=== PATIENT | male | born 1960 | race Caucasian/White ===

== ENCOUNTER 2019-03-06 12:05 | Outpatient (CLI) | payer OTHER | END 2019-03-09 12:06 | disposition short-term general hospital (02) | LOC: EMS 12:05 | PROVIDERS: ATTEND Surgery | DX: S09.90XA Unspecified injury of head, initial encounter (principal); S99.912A Unspecified injury of left ankle, initial encounter; M54.5 Low back pain; W11.XXXA Fall on and from ladder, initial encounter; Y92.008 Other place in unspecified non-institutional (private) residence as the place of occurrence of the external cause | CPT/HCPCS: A0425; A0427 ==

== ENCOUNTER 2019-04-04 21:41 | Emergency (ER) | payer OTHER, MEDICAID ==
--- NOTE | 2019-04-04 21:58 | ED Physician Documentation ---
History of Present Illness - Stated complaint Stated Complaint: ANKLE PX POST OP - Chief complaint Chief Complaint: Ext Problem - History obtained from History obtained from: Patient - History of Present Illness Timing: How many days ago (4 days) Pain level max: 10 Pain level now: 10 Improved by: rest Worsened by: no exacerbating factors Associated symptoms: pain, chills, dyspnea - Additonal information Additional information: patient fell off ladder 03/05/19, was taken from scene directly to [place] where he stayed for 2-3 days. He was diagnosed with fractures of T12 and S3, as well as left calcaneus. He was discharged home, and then had surgery at [facility] 03/25 to repair the calcaneal fracture. He has been having steady pain in the left foot since the surgery, which has been worsening past few days and, since Sunday (4 days ago), associated with left posterior calf pain/cramping. He contacted [facility] and was told to take PO magnesium and also had rx sent to his pharmacy for flexeril; neither of these measures has improved the discomfort. Today he has been having chills, has not taken his temperature at home. Review of Systems Constitutional: reports: Chills Eyes: reports: Reviewed and negative Ears: reports: Reviewed and negative Nose: reports: Reviewed and negative Cardiac: reports: Pedal edema. denies: Chest pain / pressure, Palpitations Respiratory: reports: Dyspnea (this evening). denies: Cough, Hemoptysis, Wheezing GI: reports: Reviewed and negative : denies: Dysuria, Frequency Musculoskeletal: reports: Extremity pain, Extremity swelling Neurologic: denies: Generalized weakness, Focal weakness, Numbness, Headache PD PAST MEDICAL HISTORY - Past Medical History Past Medical History: Yes Cardiovascular: Hypertension - Past Surgical History Past Surgical History: Yes Ortho: Other (repair of left calcaneus fracture) - Present Medications Home Medications: Ambulatory Orders Medication Instructions Recorded Confirmed Acetaminophen [Tylenol Extra 1,000 mg PO TID 04/05/19 04/05/19 Strength] Amlodipine Besylate 10 mg PO DAILY 04/05/19 04/05/19 Gabapentin 300 mg PO TID 04/05/19 04/05/19 hydrOXYzine HCl [Hydroxyzine HCl] 50 mg PO TID 04/05/19 04/05/19 oxyCODONE [Roxicodone] 5 mg PO Q6HR PRN 04/05/19 04/05/19 - Allergies Allergies/Adverse Reactions: Allergies Allergy/AdvReac Type Severity Reaction Status Date / Time No Known Drug Allergies Allergy Verified 04/04/19 21:51 - Living Situation Living Situation: reports: With spouse/s.o. Living Arrangement: reports: At home - Social History Does the pt smoke?: No PD ED PE NORMAL - Vitals Vital signs reviewed: Yes - General General: Alert and oriented X 3, Well developed/nourished, Other (appears to be in pain at times during H+P) - HEENT HEENT: Moist mucous membranes - Neck Neck: Supple, no meningeal sign - Cardiac Cardiac: RRR, No murmur - Respiratory Respiratory: No respiratory distress, Clear bilaterally - Abdomen Abdomen: Soft, Non tender - Neuro Neuro: No motor deficit, No sensory deficit PD ED PE EXPANDED - Extremities Extremities: Other (left foot is swollen, tender, hot to touch, erythematous. the medial malleolus has fluctuance and purulent drainage. incision site is C/D/I with sutures in place. brisk capillary refill in toes with LTS intact) Results - Vitals Vitals: Vital Signs - 24 hr 04/04/19 04/04/19 04/05/19 21:45 22:15 00:06 Temperature 35.6 C L 36.5 C 37.2 C Heart Rate 115 H 88 Respiratory 18 14 Rate Blood Pressure 123/81 H 130/73 O2 Saturation 97 98 04/05/19 04/05/19 04/05/19 00:14 01:08 02:17 Temperature 37.4 C Heart Rate 94 86 83 Respiratory 18 17 18 Rate Blood Pressure 132/77 H 137/81 H 123/78 O2 Saturation 99 98 99 04/05/19 04/05/19 02:38 03:53 Temperature 36.8 C 36.7 C Heart Rate 85 91 Respiratory 18 15 Rate Blood Pressure 138/79 H 132/85 H O2 Saturation 98 97 Oxygen O2 Source Room air - EKG (time done) No standard instances Rate: Rate (enter#) (95) Rhythm: NSR [place]: Normal Intervals: Normal ND QRS: Normal Ischemia: Normal ST segments - Labs Labs: Laboratory Tests 04/04/19 04/04/19 04/04/19 22:26 22:26 22:26 WBC 9.5 RBC 3.65 L Hgb 11.4 L Hct 33.7 L MCV 92.3 MCH 31.2 H MCHC 33.8 RDW 11.9 L Plt Count 414 MPV 8.6 Neut # (Auto) 6.7 H Lymph # (Auto) 1.2 L [place] # (Auto) 1.3 H Eos # (Auto) 0.1 Baso # (Auto) 0.1 Absolute Nucleated RBC 0.00 Nucleated RBC % 0.0 ESR Sodium 137 Potassium 3.6 Chloride 101 Carbon Dioxide 25 Anion Gap 11.0 BUN 7 Creatinine 0.9 Estimated GFR (MDRD) 87 L Glucose 118 H Lactic Acid 1.3 Calcium 9.6 C-Reactive Protein 7.4 H 04/04/19 22:26 WBC RBC Hgb Hct MCV MCH MCHC RDW Plt Count MPV Neut # (Auto) Lymph # (Auto) [place] # (Auto) Eos # (Auto) Baso # (Auto) Absolute Nucleated RBC Nucleated RBC % ESR 44 H Sodium Potassium Chloride Carbon Dioxide Anion Gap BUN Creatinine Estimated GFR (MDRD) Glucose Lactic Acid Calcium C-Reactive Protein - Rads (name of study) LLE US Radiology: Prelim report reviewed, See rad report left foot xrays Radiology: Prelim report reviewed, See rad report PD MEDICAL DECISION MAKING - ED course Complexity details: reviewed results, re-evaluated patient, considered differential, d/w patient ED course: D/W Dr. Sarath Fiore (orthopedics at [facility]), accepts patient for transfer. We discussed antibiotics and he says antibiotics do not need to be started in [facility] at this time Departure - Departure Disposition: 02 Transfer Acute Care Hosp Clinical Impression: Post-operative infection Condition: Stable Discharge Date/Time: 04/05/19 03:55
[2019-04-04 22:38] LABS: BASOPHILS # (AUTO) 0.1 10^3/uL (0.0-0.1); EOSINOPHILS # (AUTO) 0.1 10^3/uL (0.0-0.7); EOSINOPHILS % (AUTO) 1.1 %; HGB - HEMOGLOBIN 11.4 g/dL (14.0-18.0); LYMPHOCYTES # (AUTO) 1.2 10^3/uL (1.5-3.5); MEAN CORPUSCULAR HEMOGLOBIN 31.2 pg (27.0-31.0); MEAN CORPUSCULAR HGB CONC 33.8 g/dL (32.0-36.0); MEAN CORPUSCULAR VOLUME 92.3 fL (80.0-94.0); MEAN PLATELET VOLUME 8.6 fL (7.4-11.4); MONOCYTES # (AUTO) 1.3 10^3/uL (0.0-1.0); MONOCYTES % (AUTO) 13.4 %; NEUTROPHILS # (AUTO) 6.7 10^3/uL (1.5-6.6); NEUTROPHILS % (AUTO) 71.1 %; PLT - PLATELET COUNT 414 10^3/uL (130-450); RED BLOOD COUNT 3.65 10^6/uL (4.70-6.10); RED CELL DISTRIBUTION WIDTH 11.9 % (12.0-15.0); WHITE BLOOD COUNT 9.5 x10^3/uL (4.8-10.8)
[2019-04-04 22:55] LABS: CALCIUM 9.6 mg/dL (8.5-10.3); CREATININE 0.9 mg/dL (0.6-1.2); CRP - C-REACTIVE PROTEIN 7.4 mg/dL (0-1.0)
--- NOTE | 2019-04-04 23:03 | XRAY Report ---
Reason: recent surgery, now appears infected Procedure Date: 04/04/2019 Accession Number: [id number] / [id number] Procedure: XR - Foot 3 View LT CPT Code: Final Report FULL RESULT: EXAM: LEFT FOOT RADIOGRAPHY EXAM DATE: 04/04/2019 10:42 PM. CLINICAL HISTORY: Recent surgery, now appears infected. COMPARISON: None. TECHNIQUE: 3 views. FINDINGS: Bones: Side plate and screw fixation of the calcaneus. Joints: Mild degenerative changes. Soft Tissues: Soft tissue swelling. IMPRESSION: Side plate and screw fixation of the calcaneus. Soft tissue swelling. RADIA
[2019-04-04] MEDS ORDERED: MORPHINE 2 MG/ML CARPUJECT IVP STA (23:12)
[2019-04-05] MEDS ORDERED: MORPHINE 2 MG/ML CARPUJECT IVP STA ×2 (00:12→02:17)
--- NOTE | 2019-04-05 00:20 | Ultrasound Report ---
Reason: swelling, pain, recent surgery Procedure Date: 04/04/2019 Accession Number: [id number] / [id number] Procedure: US - Duplex Ext Veins Left CPT Code: Final Report FULL RESULT: EXAM: LEFT LOWER EXTREMITY VENOUS ULTRASOUND EXAM DATE: 04/04/2019 11:52 PM. CLINICAL HISTORY: Swelling, pain, recent surgery. COMPARISON: FOOT 3 VIEW LT 04/04/2019 10:23 PM. TECHNIQUE: Real-time sonographic vascular imaging was performed by the cash on delivery clerk through the lower extremity utilizing both color-flow and Doppler spectral analysis. Multiple sales representative girls' apparel static images were saved for review. FINDINGS: Common Femoral Vein (CFV): Normal. CFV-GSV Junction: Normal. Profunda Femoral Vein (PFV): Normal. Femoral Vein (FV) Prox: Normal. Femoral Vein (FV) Mid: Normal. Femoral Vein (FV) Dist: Normal. Popliteal Vein: Normal. Posterior Tibial Veins: Normal. Peroneal Veins: Normal. Contralateral Side CFV: Not studied. Other: A small cystic-appearing fluid collection in the left popliteal fossa measures 1.2 x 0.8 x 0.6 cm. Possible Valdivia's cyst. Some prominent lymph nodes in the upper thigh, measuring up to 0.7 cm in short axis, likely reactive given recent surgery. IMPRESSION: No evidence for deep venous thrombosis in the left lower extremity.. RADIA
[2019-04-05] MEDS ORDERED: CYCLOBENZAPRINE 10 MG TABLET PO STA (01:27)
[2019-04-05] MEDS ORDERED: diazePAM 5 MG TABLET PO STA (02:17)
[2019-04-05 03:55] VITALS: BP 132/85
== END 2019-04-05 03:55 | disposition short-term general hospital (02) ==
LOC: ED 21:41
DX: T81.49XA Infection following a procedure, other surgical site, initial encounter (principal); Y83.8 Other surgical procedures as the cause of abnormal reaction of the patient, or of later complication, without mention of misadventure at the time of the procedure; I10 Essential (primary) hypertension
CPT/HCPCS: 36415; 73630; 80048; 83605; 85025; 85651; 86140; 87040; 93005; 93971; 96374; 96376; 99284; 99285; A9270

== ENCOUNTER 2019-04-05 03:58 | Outpatient (CLI) | payer MEDICAID | END 2019-04-05 03:59 | disposition short-term general hospital (02) | LOC: EMS 03:58 | PROVIDERS: ATTEND Surgery | DX: T81.40XA Infection following a procedure, unspecified, initial encounter (principal); Y83.8 Other surgical procedures as the cause of abnormal reaction of the patient, or of later complication, without mention of misadventure at the time of the procedure | CPT/HCPCS: A0425; A0426 ==

== ENCOUNTER 2019-04-17 08:00 | Outpatient (CLI) | payer MEDICAID ==
[2019-04-17 11:39] LABS: BASOPHILS # (AUTO) 0.1 10^3/uL (0.0-0.1); BASOPHILS % (AUTO) 1.5 %; EOSINOPHILS # (AUTO) 0.4 10^3/uL (0.0-0.7); EOSINOPHILS % (AUTO) 4.9 %; HGB - HEMOGLOBIN 11.2 g/dL (14.0-18.0); LYMPHOCYTES # (AUTO) 1.6 10^3/uL (1.5-3.5); LYMPHOCYTES % (AUTO) 19.6 %; MEAN CORPUSCULAR HEMOGLOBIN 29.9 pg (27.0-31.0); MEAN CORPUSCULAR HGB CONC 32.1 g/dL (32.0-36.0); MEAN CORPUSCULAR VOLUME 93.1 fL (80.0-94.0); MEAN PLATELET VOLUME 9.1 fL (7.4-11.4); MONOCYTES % (AUTO) 12.5 %; NEUTROPHILS # (AUTO) 4.8 10^3/uL (1.5-6.6); NEUTROPHILS % (AUTO) 61.1 %; PLT - PLATELET COUNT 556 10^3/uL (130-450); RED BLOOD COUNT 3.75 10^6/uL (4.70-6.10); RED CELL DISTRIBUTION WIDTH 11.9 % (12.0-15.0); WHITE BLOOD COUNT 7.9 x10^3/uL (4.8-10.8)
[2019-04-17 11:48] LABS: ALBUMIN 3.6 g/dL (3.2-5.5); ALBUMIN/GLOBULIN RATIO 1.2 (1.0-2.2); BILIRUBIN,TOTAL 0.3 mg/dL (0.2-1.0); CALCIUM 9.7 mg/dL (8.5-10.3); CREATININE 0.8 mg/dL (0.6-1.2); TOTAL PROTEIN 6.7 g/dL (6.7-8.2)
== END 2019-04-17 23:59 | disposition home or self-care (01) ==
LOC: LAB.R 08:00
PROVIDERS: ATTEND Internal Medicine Critical Care Medicine
DX: M86.172 Other acute osteomyelitis, left ankle and foot (principal); I10 Essential (primary) hypertension
CPT/HCPCS: 80053; 85025

== ENCOUNTER 2019-05-22 12:59 | Outpatient (CLI) | payer OTHER, MEDICAID ==
[2019-05-22 13:15] LABS: BASOPHILS % (AUTO) 0.6 %; EOSINOPHILS # (AUTO) 0.3 10^3/uL (0.0-0.7); EOSINOPHILS % (AUTO) 4.4 %; LYMPHOCYTES # (AUTO) 0.7 10^3/uL (1.5-3.5); LYMPHOCYTES % (AUTO) 11.3 %; MEAN CORPUSCULAR HEMOGLOBIN 30.4 pg (27.0-31.0); MEAN CORPUSCULAR HGB CONC 32.4 g/dL (32.0-36.0); MEAN CORPUSCULAR VOLUME 93.7 fL (80.0-94.0); MEAN PLATELET VOLUME 8.5 fL (7.4-11.4); MONOCYTES # (AUTO) 0.4 10^3/uL (0.0-1.0); MONOCYTES % (AUTO) 5.5 %; NEUTROPHILS % (AUTO) 77.7 %; PLT - PLATELET COUNT 280 10^3/uL (130-450); RED BLOOD COUNT 4.61 10^6/uL (4.70-6.10); RED CELL DISTRIBUTION WIDTH 13.8 % (12.0-15.0); WHITE BLOOD COUNT 6.4 x10^3/uL (4.8-10.8)
[2019-05-22 13:32] LABS: ALBUMIN 4.3 g/dL (3.2-5.5); ALBUMIN/GLOBULIN RATIO 1.4 (1.0-2.2); BILIRUBIN,TOTAL 0.5 mg/dL (0.2-1.0); CALCIUM 9.3 mg/dL (8.5-10.3); CREATININE 1.2 mg/dL (0.6-1.2); TOTAL PROTEIN 7.3 g/dL (6.7-8.2)
== END 2019-05-22 13:00 | disposition home or self-care (01) ==
LOC: LAB 12:59
PROVIDERS: ATTEND Internal Medicine Infectious Disease
DX: M86.172 Other acute osteomyelitis, left ankle and foot (principal)
CPT/HCPCS: 36415; 80053; 85025

== ENCOUNTER 2019-05-29 12:48 | Outpatient (CLI) | payer MEDICAID, OTHER ==
[2019-05-29 13:13] LABS: BASOPHILS # (AUTO) 0.1 10^3/uL (0.0-0.1); EOSINOPHILS # (AUTO) 0.1 10^3/uL (0.0-0.7); EOSINOPHILS % (AUTO) 0.7 %; HGB - HEMOGLOBIN 14.2 g/dL (14.0-18.0); LYMPHOCYTES # (AUTO) 0.9 10^3/uL (1.5-3.5); LYMPHOCYTES % (AUTO) 13.3 %; MEAN CORPUSCULAR HEMOGLOBIN 30.3 pg (27.0-31.0); MEAN CORPUSCULAR HGB CONC 32.6 g/dL (32.0-36.0); MEAN CORPUSCULAR VOLUME 92.9 fL (80.0-94.0); MEAN PLATELET VOLUME 8.5 fL (7.4-11.4); MONOCYTES # (AUTO) 0.5 10^3/uL (0.0-1.0); MONOCYTES % (AUTO) 6.6 %; NEUTROPHILS # (AUTO) 5.3 10^3/uL (1.5-6.6); NEUTROPHILS % (AUTO) 78.1 %; PLT - PLATELET COUNT 284 10^3/uL (130-450); RED BLOOD COUNT 4.68 10^6/uL (4.70-6.10); RED CELL DISTRIBUTION WIDTH 14.2 % (12.0-15.0); WHITE BLOOD COUNT 6.8 x10^3/uL (4.8-10.8)
[2019-05-29 13:34] LABS: ALBUMIN 4.4 g/dL (3.2-5.5); ALBUMIN/GLOBULIN RATIO 1.5 (1.0-2.2); BILIRUBIN,TOTAL 0.6 mg/dL (0.2-1.0); CALCIUM 9.4 mg/dL (8.5-10.3); TOTAL PROTEIN 7.3 g/dL (6.7-8.2)
== END 2019-05-29 12:49 | disposition home or self-care (01) ==
LOC: LAB 12:48
PROVIDERS: ATTEND Internal Medicine Infectious Disease
DX: M86.172 Other acute osteomyelitis, left ankle and foot (principal)
CPT/HCPCS: 36415; 80053; 85025

== ENCOUNTER 2019-06-05 13:03 | Outpatient (CLI) | payer OTHER ==
[2019-06-05 13:42] LABS: BASOPHILS # (AUTO) 0.1 10^3/uL (0.0-0.1); BASOPHILS % (AUTO) 1.6 %; EOSINOPHILS # (AUTO) 0.3 10^3/uL (0.0-0.7); EOSINOPHILS % (AUTO) 5.3 %; HGB - HEMOGLOBIN 13.8 g/dL (14.0-18.0); LYMPHOCYTES # (AUTO) 1.1 10^3/uL (1.5-3.5); LYMPHOCYTES % (AUTO) 19.2 %; MEAN CORPUSCULAR HEMOGLOBIN 30.1 pg (27.0-31.0); MEAN CORPUSCULAR HGB CONC 32.8 g/dL (32.0-36.0); MEAN CORPUSCULAR VOLUME 91.9 fL (80.0-94.0); MEAN PLATELET VOLUME 8.5 fL (7.4-11.4); MONOCYTES # (AUTO) 0.6 10^3/uL (0.0-1.0); MONOCYTES % (AUTO) 11.4 %; NEUTROPHILS # (AUTO) 3.4 10^3/uL (1.5-6.6); NEUTROPHILS % (AUTO) 62.1 %; PLT - PLATELET COUNT 263 10^3/uL (130-450); RED BLOOD COUNT 4.58 10^6/uL (4.70-6.10); RED CELL DISTRIBUTION WIDTH 14.3 % (12.0-15.0); WHITE BLOOD COUNT 5.5 x10^3/uL (4.8-10.8)
[2019-06-05 13:55] LABS: ALBUMIN 4.3 g/dL (3.2-5.5); ALBUMIN/GLOBULIN RATIO 1.5 (1.0-2.2); BILIRUBIN,TOTAL 0.6 mg/dL (0.2-1.0); CALCIUM 9.4 mg/dL (8.5-10.3); TOTAL PROTEIN 7.1 g/dL (6.7-8.2)
== END 2019-06-05 13:04 | disposition home or self-care (01) ==
LOC: LAB 13:03
PROVIDERS: ATTEND Internal Medicine Infectious Disease
DX: M86.172 Other acute osteomyelitis, left ankle and foot (principal)
CPT/HCPCS: 36415; 80053; 85025

== ENCOUNTER 2019-06-12 10:50 | Outpatient (CLI) | payer MEDICAID, OTHER ==
[2019-06-12 11:30] LABS: BASOPHILS # (AUTO) 0.1 10^3/uL (0.0-0.1); BASOPHILS % (AUTO) 1.7 %; EOSINOPHILS # (AUTO) 0.2 10^3/uL (0.0-0.7); EOSINOPHILS % (AUTO) 4.4 %; HGB - HEMOGLOBIN 13.8 g/dL (14.0-18.0); LYMPHOCYTES % (AUTO) 37.1 %; MEAN CORPUSCULAR HEMOGLOBIN 29.7 pg (27.0-31.0); MEAN CORPUSCULAR HGB CONC 31.9 g/dL (32.0-36.0); MEAN CORPUSCULAR VOLUME 93.3 fL (80.0-94.0); MEAN PLATELET VOLUME 9.2 fL (7.4-11.4); MONOCYTES # (AUTO) 0.5 10^3/uL (0.0-1.0); MONOCYTES % (AUTO) 9.7 %; NEUTROPHILS # (AUTO) 2.6 10^3/uL (1.5-6.6); NEUTROPHILS % (AUTO) 46.7 %; PLT - PLATELET COUNT 276 10^3/uL (130-450); RED BLOOD COUNT 4.64 10^6/uL (4.70-6.10); RED CELL DISTRIBUTION WIDTH 14.4 % (12.0-15.0); WHITE BLOOD COUNT 5.5 x10^3/uL (4.8-10.8)
[2019-06-12 11:47] LABS: ALBUMIN/GLOBULIN RATIO 1.5 (1.0-2.2); BILIRUBIN,TOTAL 0.3 mg/dL (0.2-1.0); CALCIUM 9.1 mg/dL (8.5-10.3); CREATININE 1.1 mg/dL (0.6-1.2); TOTAL PROTEIN 6.7 g/dL (6.7-8.2)
== END 2019-06-12 10:51 | disposition home or self-care (01) ==
LOC: LAB 10:50
PROVIDERS: ATTEND Internal Medicine Infectious Disease
DX: M86.172 Other acute osteomyelitis, left ankle and foot (principal)
CPT/HCPCS: 36415; 80053; 85025

== ENCOUNTER 2019-06-19 10:48 | Outpatient (CLI) | payer OTHER ==
[2019-06-19 11:22] LABS: BASOPHILS # (AUTO) 0.1 10^3/uL (0.0-0.1); BASOPHILS % (AUTO) 1.4 %; EOSINOPHILS # (AUTO) 0.3 10^3/uL (0.0-0.7); EOSINOPHILS % (AUTO) 6.6 %; HGB - HEMOGLOBIN 13.9 g/dL (14.0-18.0); LYMPHOCYTES # (AUTO) 1.5 10^3/uL (1.5-3.5); LYMPHOCYTES % (AUTO) 29.2 %; MEAN CORPUSCULAR VOLUME 90.4 fL (80.0-94.0); MEAN PLATELET VOLUME 8.7 fL (7.4-11.4); MONOCYTES # (AUTO) 0.7 10^3/uL (0.0-1.0); MONOCYTES % (AUTO) 13.8 %; NEUTROPHILS # (AUTO) 2.5 10^3/uL (1.5-6.6); NEUTROPHILS % (AUTO) 48.4 %; PLT - PLATELET COUNT 280 10^3/uL (130-450); RED CELL DISTRIBUTION WIDTH 14.1 % (12.0-15.0); WHITE BLOOD COUNT 5.1 x10^3/uL (4.8-10.8)
[2019-06-19 11:35] LABS: ALBUMIN/GLOBULIN RATIO 1.5 (1.0-2.2); BILIRUBIN,TOTAL 0.6 mg/dL (0.2-1.0); CALCIUM 9.3 mg/dL (8.5-10.3); TOTAL PROTEIN 6.7 g/dL (6.7-8.2)
== END 2019-06-19 10:49 | disposition home or self-care (01) ==
LOC: LAB 10:48
PROVIDERS: ATTEND Internal Medicine Infectious Disease
DX: M86.172 Other acute osteomyelitis, left ankle and foot (principal)
CPT/HCPCS: 36415; 80053; 85025

== ENCOUNTER 2019-06-26 10:30 | Outpatient (CLI) | payer OTHER ==
[2019-06-26 10:42] LABS: BASOPHILS # (AUTO) 0.1 10^3/uL (0.0-0.1); BASOPHILS % (AUTO) 1.5 %; EOSINOPHILS # (AUTO) 0.4 10^3/uL (0.0-0.7); HGB - HEMOGLOBIN 15.1 g/dL (14.0-18.0); LYMPHOCYTES # (AUTO) 1.8 10^3/uL (1.5-3.5); LYMPHOCYTES % (AUTO) 28.7 %; MEAN CORPUSCULAR HGB CONC 33.3 g/dL (32.0-36.0); MEAN CORPUSCULAR VOLUME 90.1 fL (80.0-94.0); MEAN PLATELET VOLUME 8.5 fL (7.4-11.4); MONOCYTES # (AUTO) 0.6 10^3/uL (0.0-1.0); MONOCYTES % (AUTO) 10.4 %; NEUTROPHILS # (AUTO) 3.2 10^3/uL (1.5-6.6); NEUTROPHILS % (AUTO) 52.1 %; PLT - PLATELET COUNT 276 10^3/uL (130-450); RED BLOOD COUNT 5.03 10^6/uL (4.70-6.10); RED CELL DISTRIBUTION WIDTH 14.2 % (12.0-15.0); WHITE BLOOD COUNT 6.1 x10^3/uL (4.8-10.8)
[2019-06-26 10:55] LABS: ALBUMIN 4.3 g/dL (3.2-5.5); ALBUMIN/GLOBULIN RATIO 1.6 (1.0-2.2); BILIRUBIN,TOTAL 0.6 mg/dL (0.2-1.0); CALCIUM 9.6 mg/dL (8.5-10.3); CREATININE 1.1 mg/dL (0.6-1.2)
== END 2019-06-26 10:31 | disposition home or self-care (01) ==
LOC: LAB 10:30
PROVIDERS: ATTEND Internal Medicine Infectious Disease
DX: M86.172 Other acute osteomyelitis, left ankle and foot (principal)
CPT/HCPCS: 36415; 80053; 85025

== ENCOUNTER 2019-07-03 07:00 | Outpatient (CLI) | payer MEDICAID, OTHER ==
[2019-07-03 13:17] LABS: BASOPHILS # (AUTO) 0.1 10^3/uL (0.0-0.1); BASOPHILS % (AUTO) 1.3 %; EOSINOPHILS # (AUTO) 0.4 10^3/uL (0.0-0.7); EOSINOPHILS % (AUTO) 5.1 %; LYMPHOCYTES # (AUTO) 1.6 10^3/uL (1.5-3.5); LYMPHOCYTES % (AUTO) 19.3 %; MEAN CORPUSCULAR HEMOGLOBIN 29.9 pg (27.0-31.0); MEAN CORPUSCULAR HGB CONC 33.3 g/dL (32.0-36.0); MEAN CORPUSCULAR VOLUME 89.6 fL (80.0-94.0); MEAN PLATELET VOLUME 8.5 fL (7.4-11.4); MONOCYTES # (AUTO) 0.8 10^3/uL (0.0-1.0); MONOCYTES % (AUTO) 9.5 %; NEUTROPHILS # (AUTO) 5.3 10^3/uL (1.5-6.6); NEUTROPHILS % (AUTO) 64.4 %; PLT - PLATELET COUNT 296 10^3/uL (130-450); RED BLOOD COUNT 5.02 10^6/uL (4.70-6.10); RED CELL DISTRIBUTION WIDTH 14.4 % (12.0-15.0); WHITE BLOOD COUNT 8.2 x10^3/uL (4.8-10.8)
[2019-07-03 13:30] LABS: ALBUMIN 4.4 g/dL (3.2-5.5); ALBUMIN/GLOBULIN RATIO 1.4 (1.0-2.2); BILIRUBIN,TOTAL 0.4 mg/dL (0.2-1.0); CALCIUM 9.3 mg/dL (8.5-10.3); CREATININE 1.2 mg/dL (0.6-1.2); TOTAL PROTEIN 7.5 g/dL (6.7-8.2)
== END 2019-07-03 23:59 | disposition home or self-care (01) ==
LOC: LAB 07:00
PROVIDERS: ATTEND Internal Medicine Infectious Disease
DX: M86.172 Other acute osteomyelitis, left ankle and foot (principal)
CPT/HCPCS: 36415; 80053; 85025

== ENCOUNTER 2019-07-10 11:33 | Outpatient (CLI) | payer OTHER | END 2019-07-10 11:34 | disposition home or self-care (01) | LOC: LAB 11:33 | PROVIDERS: ATTEND Internal Medicine | DX: E53.8 Deficiency of other specified B group vitamins (principal); M79.10 Myalgia, unspecified site | CPT/HCPCS: 36415; 82306; 83921 ==

== ENCOUNTER 2020-05-04 16:42 | Outpatient (CLI) | payer MEDICARE ==
--- OUTSIDE RECORDS SUMMARY | 2020-05-05 04:53 | EXTERNAL MEDICAL SUMMARY RPT | Continuity of Care Document ---
:1960 Demographics Phone Unavailable Preferred Language Unknown Marital Status Unknown Holiness Affiliation Unknown Race Unknown Ethnic Group Unknown Author Organization [facility] Address [address] [place] [address] Phone Care Team Providers Name Role Phone Provider Unavailable Unavailable Problems date description facility 2019-04-04 21:41 OTHER ACUTE POSTPROCEDURAL PAIN [facility] 2019-04-04 21:41 ESSENTIAL (PRIMARY) HYPERTENSION [facility] 2019-04-04 21:41 INFECTION FOLLOWING A PROCEDURE, [facility] OTHER SURGICAL SITE, INIT 2019-04-04 21:41 OT SURGICAL PROCEDURES CAUSE ABN [facility] REACT/COMPL, W/O MISADVNT 2019-04-17 08:00 ESSENTIAL (PRIMARY) HYPERTENSION [facility] 2019-04-17 08:00 OTHER ACUTE OSTEOMYELITIS, [facility] ANKLE AND FOOT 2019-05-22 12:59 OTHER ACUTE OSTEOMYELITIS, [facility] ANKLE AND FOOT 2019-05-29 12:48 OTHER ACUTE OSTEOMYELITIS, [facility] ANKLE AND FOOT 2019-06-05 13:03 OTHER ACUTE OSTEOMYELITIS, [facility] ANKLE AND FOOT 2019-06-12 10:50 OTHER ACUTE OSTEOMYELITIS, [facility] ANKLE AND FOOT 2019-06-26 10:30 OTHER ACUTE OSTEOMYELITIS, [facility] ANKLE AND FOOT 2019-07-03 07:00 OTHER ACUTE OSTEOMYELITIS, [facility] ANKLE AND FOOT 2019-07-10 11:33 DEFICIENCY OF OTHER SPECIFIED B [facility] GROUP VITAMINS 2019-07-10 11:33 MYALGIA, UNSPECIFIED SITE [facility] 2020-03-01 05:27 Spinal stenosis, cervical region [facility] 2020-03-01 05:27 Radiculopathy, cervical region [facility] 2020-03-01 05:27 Low back pain [facility] 2020-03-01 05:27 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 2020-03-01 05:27 Wedge compression fracture of [facility] T11-T12 vertebra, subsequent encounter for fracture with routine healing Allergies date description facility AMOXICILLIN [facility] AZITHROMYCIN [facility] CITALOPRAM [facility] CODEINE [facility] ERYTHROMYCIN BASE [facility] LISINOPRIL [facility] METO[facility]OPRAMIDE [facility] SULFAMETHOXAZOLE [facility] ERYTHROMYCIN BASE [facility] HYDROCODONE-ACETAMINOPHEN [facility] OXYCODONE-ACETAMINOPHEN [facility] PANTOPRAZOLE SODIUM [facility] NO KNOWN ENVIRONMENTAL ALLERGIES [facility] SULFA ANTIBIOTICS [facility]INS [facility] LEGUMES [facility] WATERMELON [facility] No Known Drug [facility]ergies [facility]ILLIN [facility] METFORMIN [facility] NO KNOWN ALLERGIES [facility] Social History date description facility [id number]
== END 2020-05-04 16:43 | disposition home or self-care (01) ==
LOC: COV 16:42
PROVIDERS: ATTEND Otolaryngology
DX: Z01.812 Encounter for preprocedural laboratory examination (principal); J38.00 Paralysis of vocal cords and larynx, unspecified; Z20.822 Contact with and (suspected) exposure to COVID-19